=== PATIENT | male | born 1985 | race Caucasian/White ===

== ENCOUNTER 2018-04-27 12:38 | Emergency (ER) | payer SELFPAY ==
[2018-04-27] MEDS ORDERED: Sodium Chloride 0.9% 2.5 ML Syringe FLUSH PRN (12:53)
[2018-04-27] MEDS ORDERED: Sodium Chloride 0.9% 10 ML Syringe FLUSH PRN (12:53)
--- NOTE | 2018-04-27 13:06 | EDM.PDOC ---
ED HPI GENERAL MEDICAL PROBLEM - General Chief Complaint: Genitourinary Problem Stated Complaint: PAIN IN GROIN AREA Time Seen by Provider: 04/27/18 15:39 Source of Information: Reports: Patient History Limitations: Reports: No Limitations - History of Present Illness INITIAL COMMENTS - FREE TEXT/NARRATIVE: HISTORY AND PHYSICAL: History of present illness: [Scott is a 32-year-old male here with pain and swelling to his left groin. He reports that he had a pimple there that he was picking at, past couple of days got much larger, red, and painful. He went to the walk-in clinic in [place] yesterday and was started on Keflex. He denies fevers or chills. Patient denies IV drug use but reports "abusing" oxycodone, hydrocodone, and alcohol. ] Review of systems: As per history of present illness and below otherwise all systems reviewed and negative. Past medical history: As per history of present illness and as reviewed below otherwise noncontributory. Surgical history: As per history of present illness and as reviewed below otherwise noncontributory. Social history: No reported history of drug or alcohol abuse. Family history: As per history of present illness and as reviewed below otherwise noncontributory. Physical exam: General: sitting comfortably in no acute distress HEENT: Atraumatic, normocephalic, pupils reactive, negative for conjunctival pallor or scleral icterus, mucous membranes moist, throat clear, neck supple, nontender, trachea midline. Lungs: Clear to auscultation, breath sounds equal bilaterally, chest nontender. Heart: S1S2, regular, negative for clicks, rubs, or JVD. Abdomen: Soft, nondistended, nontender. Negative for masses or hepatosplenomegaly. Negative for costovertebral tenderness. Pelvis: Stable nontender. Genitourinary: No tenderness to palpation of the scrotum and contents. Rectal: Deferred. Skin: There area multiple erythematous nodules on the right buttock to right lateral thigh measuring 1cm to 1.5cm. Extremities: There is a 4x2cm area of erythema and induration to the right inguinal area. Pain with palpation. negative for cords or calf pain. Neurovascular unremarkable. Neuro: Awake, alert, oriented. Cranial nerves II through XII unremarkable. Cerebellum unremarkable. Motor and sensory unremarkable throughout. Exam nonfocal. Notes: Patient refused second set of blood cultures and urine sample. Diagnostics: [CBC, CMP, UA, Urine gonorrhea/chlamydia, Blood culture x 2 Duplex US right groin] Therapeutics: [Bactrim-DS BID] Impression: [Abscess] Plan: [#1 Discontinue Keflex and start bactrim as instructed #2 Follow up with primary care provider #3 Return to ED as needed as discussed] Definitive disposition and diagnosis as appropriate pending reevaluation and review of above. Right Groin Pain Score (Numeric/FACES): 9 - Related Data Allergies Allergy/AdvReac Type Severity Reaction Status Date / Time No Known Allergies Allergy Verified 04/27/18 13:10 Home Meds: Home Meds Cephalexin [Keflex] 750 mg PO Q6H 04/27/18 [History] Sulfamethoxazole/Trimethoprim [Bactrim Ds Tablet] 1 each PO BID 10 Days #20 tablet 04/27/18 [Rx] ED ROS GENERAL - Review of Systems Review Of Systems: ROS reveals no pertinent complaints other than HPI. ED EXAM, RENAL/ - Physical Exam Exam: See Below (see dictation) Exam Limited By: No Limitations (see dictation) ED PROCEDURES - Additional/Other Procedure(s) Procedure(s) (Free Text): Area was prepped and cleaned in usual sterile fashion. An #11 bladed was used to make a small incision. A moderate amount of mixed pus and blood was expressed. A culture was obtained. Dressing was applied. No complications and patient tolerated procedure well. Course - Vital Signs Last Recorded V/S: Last Vital Signs Temp 37.1 C 04/27/18 13:15 Pulse 97 04/27/18 13:15 Resp 18 04/27/18 13:15 BP Pulse Ox 98 04/27/18 13:15 - Orders/Labs/Meds Orders: Active Orders 24 hr Category Date Time Status CHLAMYDIA AND GONORRHEA BY TMA Stat Lab 04/27/18 12:55 Ordered CULTURE BLOOD [BC] Stat Lab 04/27/18 13:24 Received UA W/MICROSCOPIC [URIN] Stat Lab 04/27/18 12:55 Ordered Sodium Chloride 0.9% [Saline Flush] Med 04/27/18 12:53 Active 10 ml FLUSH ASDIRECTED PRN Sodium Chloride 0.9% [Saline Flush] Med 04/27/18 12:53 Active 2.5 ml FLUSH ASDIRECTED PRN Blood Culture x2 Reflex Set [OM.PC] Stat Oth 04/27/18 12:53 Ordered Saline Lock Insert [OM.PC] Stat Ot 04/27/18 12:52 Ordered Medication Orders Sodium Chloride (Saline Flush) 10 ml FLUSH ASDIRECTED PRN PRN Reason: Keep Vein Open Sodium Chloride (Saline Flush) 2.5 ml FLUSH ASDIRECTED PRN PRN Reason: Keep Vein Open Labs: Laboratory Tests 04/27/18 04/27/18 04/27/18 Range/Units 13:24 13:24 13:24 WBC 10.30 (4.0-11.0) K/uL RBC 4.61 (4.50-5.90) M/uL Hgb 14.2 (13.0-17.0) g/dL Hct 41.6 (38.0-50.0) % MCV 90.2 (80.0-98.0) fL MCH 30.8 (27.0-32.0) pg MCHC 34.1 (31.0-37.0) g/dL RDW Std Deviation 45.4 (28.0-62.0) fl RDW Coeff of Liborio 14 (11.0-15.0) % Plt Count 208 (150-400) K/uL MPV 9.40 (7.40-12.00) fL Neut % (Auto) 80.5 H (48.0-80.0) % Lymph % (Auto) 9.2 L (16.0-40.0) % [place] % (Auto) 8.2 (0.0-15.0) % Eos % (Auto) 1.9 (0.0-7.0) % Baso % (Auto) 0.2 (0.0-1.5) % Neut # (Auto) 8.3 H (1.4-5.7) K/uL Lymph # (Auto) 1.0 (0.6-2.4) K/uL [place] # (Auto) 0.8 (0.0-0.8) K/uL Eos # (Auto) 0.2 (0.0-0.7) K/uL Baso # (Auto) 0.0 (0.0-0.1) K/uL Nucleated RBC % 0.0 /100WBC Nucleated RBCs # 0 K/uL Lactate 1.6 (0.20-2.00) mmol/L Sodium 139 (136-148) mmol/L Potassium 4.6 (3.5-5.1) mmol/L Chloride 105 (98-107) mmol/L Carbon Dioxide 28.7 (21.0-32.0) mmol/L BUN 10 (7.0-18.0) mg/dL Creatinine 0.9 (0.8-1.3) mg/dL Est Cr Clr Drug Dosing 130.53 mL/min Estimated GFR (MDRD) > 60.0 ml/min Glucose 110 H (74-106) mg/dL Calcium 8.8 (8.5-10.1) mg/dL Total Bilirubin 0.2 (0.2-1.0) mg/dL AST 23 (15-37) IU/L ALT 49 (14-63) IU/L Alkaline Phosphatase 63 (46-116) U/L Total Protein 7.5 (6.4-8.2) g/dL Albumin 3.8 (3.4-5.0) g/dL Globulin 3.7 H (2.0-3.5) g/dL Albumin/Globulin Ratio 1.0 L (1.3-2.8) Meds: Medications Generic Name Dose Route Start Last Admin Trade Name Freq PRN Reason Stop Dose Admin Sodium Chloride 10 ml 04/27/18 12:53 Saline Flush FLUSH ASDIRECTED PRN Keep Vein Open Sodium Chloride 2.5 ml 04/27/18 12:53 Saline Flush FLUSH ASDIRECTED PRN Keep Vein Open Discontinued Medications Generic Name Dose Route Start Last Admin Trade Name Freq PRN Reason Stop Dose Admin Lidocaine/Tetracaine 1 ml 04/27/18 14:33 04/27/18 14:59 Let Soln TOP 04/27/18 14:34 1 ml ONETIME ONE Administration Lidocaine/Tetracaine Confirm 04/27/18 14:57 04/27/18 15:00 Let Soln Administered 04/27/18 14:58 1 ml Dose Administration 1 ml .ROUTE .STK-MED ONE Departure - Departure Time of Disposition: 15:38 Disposition: Home, Self-Care 01 Condition: Good Clinical Impression: Abscess - Discharge Information Prescriptions: Sulfamethoxazole/Trimethoprim [Bactrim Ds Tablet] 1 each PO BID 10 Days #20 tablet Referrals: PCP,None [Primary Care Provider] - Forms: ED Department Discharge Additional Instructions: The following information is given to patients seen in the emergency department who are being discharged to home. This information is to outline your options for follow-up care. We provide all patients seen in our emergency department with a follow-up referral. The need for follow-up, as well as the timing and circumstances, are variable depending upon the specifics of your emergency department visit. If you don't have a primary care physician on staff, we will provide you with a referral. We always advise you to contact your personal physician following an emergency department visit to inform them of the circumstance of the visit and for follow-up with them and/or the need for any referrals to a consulting specialist. The emergency department will also refer you to a specialist when appropriate. This referral assures that you have the opportunity for follow-up care with a specialist. All of these measure are taken in an effort to provide you with optimal care, which includes your follow-up. Under all circumstances we always encourage you to contact your private physician who remains a resource for coordinating your care. When calling for follow-up care, please make the office aware that this follow-up is from your recent emergency room visit. If for any reason you are refused follow-up, please contact the [facility] Emergency Department at and asked to speak to the emergency department charge nurse. [facility] [address] [place] [id number] [id number] [#1 Discontinue Keflex and start bactrim as instructed #2 Follow up with primary care provider #3 Return to ED as needed as discussed - My Orders Last 24 Hours: My Active Orders 04/27/18 12:52 Saline Lock Insert [OM.PC] Stat 04/27/18 12:53 Sodium Chloride 0.9% [Saline Flush] 10 ml FLUSH ASDIRECTED PRN Sodium Chloride 0.9% [Saline Flush] 2.5 ml FLUSH ASDIRECTED PRN Blood Culture x2 Reflex Set [OM.PC] Stat 04/27/18 12:55 CHLAMYDIA AND GONORRHEA BY TMA Stat UA W/MICROSCOPIC [URIN] Stat 04/27/18 13:24 CULTURE BLOOD [BC] Stat - Assessment/Plan Last 24 Hours: My Active Orders 04/27/18 12:52 Saline Lock Insert [OM.PC] Stat 04/27/18 12:53 Sodium Chloride 0.9% [Saline Flush] 10 ml FLUSH ASDIRECTED PRN Sodium Chloride 0.9% [Saline Flush] 2.5 ml FLUSH ASDIRECTED PRN Blood Culture x2 Reflex Set [OM.PC] Stat 04/27/18 12:55 CHLAMYDIA AND GONORRHEA BY TMA Stat UA W/MICROSCOPIC [URIN] Stat 04/27/18 13:24 CULTURE BLOOD [BC] Stat
[2018-04-27 14:01] LABS: CHLORIDE,CL 105 mmol/L (98-107); SODIUM,NA 139 mmol/L (136-148)
--- NOTE | 2018-04-27 14:24 | US ---
EXAMINATION: Right groin ultrasound HISTORY: Lump COMPARISON: None TECHNIQUE: Grayscale, real-time, and color Doppler imaging obtained of the region of concern. FINDINGS: Within the region of concern there is an irregular 1.8 x 1.7 x 2.7 cm subcutaneous fluid co llection. This demonstrates overlying skin thickening and surrounding edema and color Doppler flow. IMPRESSION: 1. Probable 1.8 x 1.7 x 2.7 cm abscess within the region of concern.
[2018-04-27] MEDS: Lidocaine/EPINEPHrine/Tetracaine Soln 1 ML TOP ONE ×2 (14:36→14:59)
[2018-04-27] MEDS ORDERED: Lidocaine/EPINEPHrine/Tetracaine Soln 1 ML ONE (14:57)
== END 2018-04-27 15:50 | disposition home or self-care (01) ==
LOC: MW.ED 12:38
DX: L02.214 Cutaneous abscess of groin (principal)
CPT/HCPCS: 36415; 76881-26-RT; 76881-RT; 80053; 83605; 85025; 87040; 87070; 87186; 99284-25